=== PATIENT | female | born 2000 | race Caucasian/White ===

== ENCOUNTER 2018-05-26 21:14 | Emergency (ER) | payer SELFPAY ==
[~2018-05-26] VITALS: Ht 154.9 cm; Wt 54.0 kg
[2018-05-26] MEDS ORDERED: ACETAMINOPHEN 325MG TABLET PO PRN (23:15)
[2018-05-27 00:10] LABS: BASOPHILS % 0.6 % (0.0-2.0); EOSINOPHILS % 0.9 % (0.0-5.0); HEMATOCRIT. 37.6 % (36.0-48.0); HEMOGLOBIN. 12.7 g/dL (12.0-16.0); LYMPHOCYTES % 26.4 % (20.0-50.0); MEAN CORPUSCULAR HEMOGLOBIN 31.2 pg (28.0-32.0); MEAN CORPUSCULAR VOLUME 92.3 fL (81.0-99.0); MEAN PLATELET VOLUME 8.2 fl (7.4-10.4); MONOCYTES % 7.8 % (2.0-8.0); NEUTROPHILS % 64.3 % (40.0-76.0); PLATELET 211 x1000/uL (130-400); RED BLOOD CELL COUNT 4.07 mill/uL (4.2-5.4)
[2018-05-27 00:18] LABS: CHLORIDE 105 mEq/L (98-107)
[2018-05-27 00:48] LABS: B-HCG QUANTITATIVE 8598 mIU/mL (<3)
[2018-05-27 03:10] VITALS: BP 115/58
== END 2018-05-27 03:12 | disposition home or self-care (01) ==
LOC: ER 21:14
DX: O20.9 Hemorrhage in early pregnancy, unspecified (principal); O26.891 Other specified pregnancy related conditions, first trimester; R10.2 Pelvic and perineal pain; Z3A.01 Less than 8 weeks gestation of pregnancy; V43.92XA Unspecified car occupant injured in collision with other type car in traffic accident, initial encounter; Y93.89 Activity, other specified; Y92.488 Other paved roadways as the place of occurrence of the external cause
CPT/HCPCS: 36415; 76705; 76801; 81025; 84702; 86850; 86900; 99284

== ENCOUNTER 2018-05-28 14:23 | Emergency (ER) | payer SELFPAY ==
[~2018-05-28] VITALS: Ht 154.9 cm; Wt 54.5 kg
[2018-05-28] MEDS ORDERED: ACETAMINOPHEN 325MG TABLET PO ONE (19:45)
[2018-05-28 20:17] LABS: CLARITY URINE CLEAR (CLEAR); COLOR URINE ORANGE (YELLOW); KETONES URINE TRACE (NEGATIVE); LEUKOCYTE ESTERASE URINE NEGATIVE (NEGATIVE); NITRITE URINE NEGATIVE (NEGATIVE); OCCULT BLOOD URINE 3+ (NEGATIVE); PH URINE 6.5 (4.5-8.0); PROTEIN URINE TRACE (NEGATIVE); UROBILINOGEN URINE 0.2 E.U./dL (0.2-1.0)
[2018-05-28 20:30] LABS: CHLORIDE 107 mEq/L (98-107)
[2018-05-28 20:32] LABS: BASOPHILS % 0.7 % (0.0-2.0); EOSINOPHILS % 0.3 % (0.0-5.0); HEMATOCRIT. 39.5 % (36.0-48.0); HEMOGLOBIN. 13.3 g/dL (12.0-16.0); LYMPHOCYTES % 21.6 % (20.0-50.0); MEAN PLATELET VOLUME 8.1 fl (7.4-10.4); MONOCYTES % 6.3 % (2.0-8.0); NEUTROPHILS % 71.1 % (40.0-76.0); PLATELET 234 x1000/uL (130-400)
[2018-05-28 20:54] LABS: B-HCG QUANTITATIVE 14072 mIU/mL (<3)
[2018-05-29 00:07] VITALS: BP 124/50
== END 2018-05-29 00:56 | disposition home or self-care (01) ==
LOC: ER 14:23
DX: O20.0 Threatened abortion (principal); Z3A.01 Less than 8 weeks gestation of pregnancy
CPT/HCPCS: 36415; 76801; 76830; 76856; 80048; 81025; 84702; 99284